=== PATIENT | female | born 1975 ===

== ENCOUNTER 2017-10-30 22:07 | Emergency (ER) | payer SELFPAY ==
[2017-10-30 23:02] VITALS: BP 149/80
[2017-10-31 00:31] LABS: Bilirubin,Urine NEG (Negative); Blood,Urine NEG (Negative); Color,Urine Amber (Yellow); Mucus,Urine FEW /HPF; Protein,Urine <15 mg/dL mg/dL (Negative)
--- NOTE | 2017-10-31 01:01 | Emergency Department Report ---
ED Female HPI - General Chief complaint: Urogenital-Female Stated complaint: BLOOD IN URINE Time Seen by Provider: 10/31/17 00:47 Source: patient Mode of arrival: Ambulatory Limitations: No Limitations - History of Present Illness Initial comments: 42-year-old -[place]ag[place] female comes to the emergency room complaining of blood in her urine. Patient states that she is 6 weeks . Patient reports that she got a faint line on a home test. Patient has not been confirmed by any healthcare provider of positive . Reports one half weeks ago she was having urine Yazan urgency. N3 days ago she started to have blood in the urine. Does admit to dysuria. She denies any vomiting but reports some nausea and breast tenderness or swelling. She reports a past medical history hypertension and PCOD. Patient reports that she's taken over- the-counter natural herbs for her PCO OD. He reports he takes hydrochlorothiazide. MD Complaint: dysuria - Related Data Allergies Allergy/AdvReac Type Severity Reaction Status Date / Time No Known Allergies Allergy Unverified 10/30/17 23:02 ED Review of Systems ROS: Stated complaint: BLOOD IN URINE Other details as noted in HPI Constitutional: denies: chills, fever Eyes: denies: eye pain, eye discharge, vision change ENT: denies: ear pain, throat pain Respiratory: denies: cough, shortness of breath, wheezing Cardiovascular: denies: chest pain, palpitations Endocrine: no symptoms reported Gastrointestinal: denies: abdominal pain, nausea, diarrhea Genitourinary: urgency, hematuria. denies: dysuria, discharge Musculoskeletal: denies: back pain, joint swelling, arthralgia Skin: denies: rash, lesions Neurological: denies: headache, weakness, paresthesias Psychiatric: denies: anxiety, depression Hematological/Lymphatic: denies: easy bleeding, easy bruising ED Past Medical Hx - Past Medical History Previous Medical History?: No - Surgical History Past Surgical History?: No - Social History Smoking Status: Current Every Day Smoker Substance Use Type: None ED Physical Exam - General Limitations: No Limitations General appearance: alert, in no apparent distress - Head Head exam: Present: atraumatic, normocephalic - Eye Eye exam: Present: normal appearance - ENT ENT exam: Present: mucous membranes moist - Neck Neck exam: Present: normal inspection - Extremities Exam Extremities exam: Present: normal inspection, full ROM - Back Exam Back exam: Present: normal inspection, full ROM - Neurological Exam Neurological exam: Present: alert, oriented X3 - Psychiatric Psychiatric exam: Present: other - Skin Skin exam: Present: warm, dry, intact, normal color. Absent: rash ED Course Vital Signs 10/30/17 23:00 Temperature 98.8 F Pulse Rate 78 Respiratory 17 Rate Blood Pressure 149/80 O2 Sat by Pulse 99 Oximetry ED Medical Decision Making - Medical Decision Making Patient has been evaluated by this provider fast track. I discussed the patient that her hCG serum was negative for any . Also discussed the patient that her urinalysis is negative for any blood and white blood cells. Discussed the patient's needs to follow up with [facility] I will refer her to one. Critical care attestation.: If time is entered above; I have spent that time in minutes in the direct care of this critically ill patient, excluding procedure time. ED Disposition Clinical Impression: Hematuria Qualifiers: Hematuria type: benign essential microscopic Qualified Code(s): R31.1 - Benign essential microscopic hematuria Disposition: TO HOME OR SELFCARE Is pt being admited?: No Does the pt Need Aspirin: No Condition: Stable Additional Instructions: Please follow up with [facility] I have listed several below. Also listed a primary care provider [facility]. Referrals: ZURI FERNANDEZ MD [Primary Care Provider] - 3-5 Days [facility] [Provider Group] - 3-5 Days [facility] [Provider Group] - 3-5 Days [facility] [Provider Group] - 3-5 Days Forms: Work/School Release Form(ED)
== END 2017-10-31 01:16 | disposition home or self-care (01) ==
LOC: ED 22:07
DX: O26.891 Other specified pregnancy related conditions, first trimester (principal); R31.1 Benign essential microscopic hematuria
CPT/HCPCS: 36415; 81001; 84703